=== PATIENT | female | born 1995 | race Caucasian/White ===

== ENCOUNTER 2024-04-17 16:33 | Emergency (ER) | payer OTHER, SELFPAY ==
[2024-04-17 16:41] VITALS: BP 125/87; PULSE 104; RESP 16; TEMP 36.9; O2SAT 99
--- NOTE | 2024-04-17 17:09 | ED_ITS ---
HPI - Skin/Abscess/Foreign Bdy General Chief complaint: Skin/Abscess/Foreign Body Stated complaint: Skib Problem Time Seen by Provider: 04/17/24 17:10 Source: patient and RN notes reviewed Mode of arrival: ambulatory Limitations: no limitations History of Present Illness HPI narrative: 28-year-old female presents with concern for rash between the fingers of her left hand. 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 She reports she has been using petroleum jelly. She reports the rash has been there for more than a month. She reports it is not itchy but can get irritated. It is not tender but sometimes it cracks and becomes painful. She reports this similar patch of rash on her left wrist. Denies any rash on her right hand or wrist MD complaint: rash Related Data Allergies Allergy/AdvReac Type Severity Reaction Status Date / Time No Known Allergies Allergy Verified 04/17/24 16:45 Review of Systems Review of Systems: CONSTITUTIONAL: Denies malaise, chills, sweats, or fever. EYES: Denies redness, or discharge. ENT: Denies rhinorrhea, congestion, swollen lips, swollen tongue CARDIOVASCULAR: Denies chest pain, palpitations, or edema. RESPIRATORY: Denies cough or dyspnea. GASTROINTESTINAL: Denies abdominal pain, nausea, vomiting SKIN: Reports rash to the left hand between her fingers MUSCULOSKELETAL: Denies joint pain or myalgia. NEUROLOGIC: Denies headache. All systems reviewed & are unremarkable except as noted in HPI and below PMFSH Comments At time of signature, agree with nursing past medical, surgical, social and family history. There is no relevant family history pertinent to the presenting complaint Exam Narrative: GENERAL: Well-appearing, well-nourished, and in no acute distress. HEAD: Normocephalic, atraumatic. EYES: PERRLA, conjunctivae clear, and EOMI. ENT: Mucous membranes moist. Oropharynx without edema, erythema or lesions. NECK: Supple. No lymphadenopathy CHEST: Clear to auscultation. No respiratory distress. HEART: Regular rate and rhythm. SKIN: Warm, dry. Patches of raised erythematous plaque with mild excoriation noted between the digits of the left hand, satellite patch noted to the left wrist. No tenderness, no warmth NEURO: Alert and oriented x3. PSYCH: Normal mood and affect Course Course Emergency Course: Patient is aware of diagnosis, understands and agrees to treatment plan. Anticipatory guidance given. Patient agrees to follow-up as directed and is aware of reasons to seek care at the emergency department. Portions of this record may have been created with voice recognition software Level of Care: Express Care Visit Vital Signs Vital signs: Vital Signs Temperature 98.4 F 04/17/24 16:41 Pulse Rate 104 H 04/17/24 16:41 Respiratory Rate 16 04/17/24 16:41 Blood Pressure 125/87 04/17/24 16:41 Pulse Oximetry 99 04/17/24 16:41 Oxygen Delivery Room Air 04/17/24 16:41 Temperature 98.4 F 04/17/24 16:41 Pulse Rate 104 H 04/17/24 16:41 Respiratory Rate 16 04/17/24 16:41 Blood Pressure 125/87 04/17/24 16:41 Pulse Oximetry 99 04/17/24 16:41 Oxygen Delivery Room Air 04/17/24 16:41 Reviewed. MDM - Skin/Abscess/Foreign Bdy MDM Narrative Medical decision making narrative: Does not appear at this time to be erythema multiforme, bullous, SJS, TEN; no evidence at this time to suggest RMSF, endocarditis or Lyme disease; patient looks well, nontoxic and is tolerating oral intake; no neurologic signs or symptoms; no headache, photophobia or neck pain; afebrile; appropriate for initial outpatient treatment; discussed the importance of follow-up, patient agrees; question, viral exanthema, contact dermatitis, allergic dermatitis, eczema, urticaria, impetigo, tinea. No soft palate or uvula edema, no tongue, lip edema or other mucosal involvement, no respiratory compromise, no stridor, no wheezing, no wheezing, no history of syncope, no hypotension, no nausea, vomiting, or diarrhea. Instructed patient to go to nearest ER immediately for any worsening symptoms including but not limited to: fever, spreading rash, pain, sore throat, headache, dizziness, chest pain, trouble breathing, or any symptoms concerning to the patient. Critical Care Time Critical Care Time Critical Care Time: No Discharge Plan Discharge Clinical Impression: Dermatitis Patient Disposition: Home, Self-Care Condition: Stable Instructions: Dermatitis (ED) Additional Instructions: Wash the area with gentle soap and water only, dry thoroughly. Use skin cream as prescribed Avoid scratching when possible to prevent worsening of the condition and disruption of the skin that could lead to bacterial infection To relieve itching, place a cool washcloth or some ice over the area that itches, rather than scratching Follow up with primary care provider or seek ER if you have trouble breathing, become hoarse, or start wheezing, develop belly cramps, vomiting or feel dizzy. Patient Language: Mongolian Prescriptions: New triamcinolone acetonide 0.1 % cream 1 applic TOPICAL BID 7 Days Qty: 80 0RF Follow-up/Referrals: PHYSICIAN,EMBROIDERY FINISHER [Primary Care Provider] - Time of Disposition: 17:18
--- OUTSIDE RECORDS SUMMARY | 2024-04-17 17:46 | XMS_ITS | Data Portability ---
Author Organization [facility] Address [address] [place] [address] Assessment Encounter Date Assessment Date Assessment LastModified by Organization Details LastModified Time 02/20/2023 02/20/2023 see ob episode [email or web address] Not available 02/20/2023 12:49:02 Plan of Treatment Reminders Order Date Submit Date Provider Last Modified By Organization Details Last Modified Time Details Appointments NEW PATIEN T 30 2024 09:00A Brandi Polanco- ith, [employer] WORKER-Bc Not available Not available Not available Lab pregna ncy test, urine 2023 024 [email or web address] In-Office Order, Internal Use Only DO Not Attach Compendium DO Not Attach Compendium, Do Not Delete/merge, [id number] 02/20/2023 12:53:32 cultur e, urine 2023 024 [facility], [address] [place] [address] 2, [place], [address], 02/23/2023 07:14:06 cytolo gy report , thin prep, smear or scrapi ng, cervic al or vagina l - spatul a and broom 2023 024 [facility], [address] [facility], [address], [place], [address], 02/22/2023 16:17:16 urinal ysis, dipsti ck 2023 024 [email or web address] In-Office Order, Internal Use Only DO Not Attach Compendium DO Not Attach Compendium, Do Not Delete/merge, [id number] 02/20/2023 13:31:13 HCG, intact + beta subuni t, quant, serum or plasma 2023 024 [facility], [address], [address], [place], [address], 02/23/2023 07:14:03 CBC w/ auto diff 2023 024 [facility], [address] [facility], [facility] 2, [place], [address], 02/21/2023 07:13:04 RPR (rapid plasma reagin ), serum 2023 024 [facility], [address] [place] [address], [facility] 2, [place], [address], 02/23/2023 07:14:07 HBsAg (hepat itis B surfac e Ag), EIA, serum 2023 024 [facility], [address] [place] [address], [facility] 2, [place], [address], 02/23/2023 07:14:06 abo group + rh type, blood 2023 024 [facility], [address] [place] [address], [facility] 2, [place], [address], 02/23/2023 07:14:05 antibo dy screen , serum or plasma 2023 024 [facility], [address] [facility], [facility] 2, [place], [address], 02/23/2023 07:14:04 HIV 1 + 2, meanin gful use set 2023 024 [facility], [address] [facility], [facility] 2, [place], [address], 02/23/2023 07:14:07 hemogl obin (Hb) electr ophore sis, blood 2023 024 [facility], [address] [facility], [place], [address], 02/23/2023 07:14:01 HSV 2 IgG Ab, QN, IA, serum 2023 024 [facility], [address] [facility], [address], [place], [address], 02/23/2023 07:14:03 Hepati tis C IgG Ab, qual, serum 2023 024 [facility], [address] [facility], [address], [place], [address], 02/23/2023 07:14:02 bacter ial vagino sis + vagini tis panel, vagina l 2014 015 [facility], [address] [place] [address] [address], [address], [place], [address], 12/14/2014 06:06:27 RPR (rapid plasma reagin ), serum 2014 015 [facility], [address] [place] [address], [address], [place], [address], 12/10/2014 12:40:37 HBsAg (hepat itis B surfac e Ag), EIA, serum 2014 015 [facility], [address] [place] [address] [address], [address], [place], [address], 12/10/2014 12:40:37 hepati tis C Ab, signal -to-cu toff, serum or plasma 2014 015 [facility], [address] [place] [address] [address], [address], [place], [address], 12/10/2014 12:40:36 HIV (1+O+2 ) Ab, serum 2014 015 [facility], [address] [facility], [address], [place], [address], 12/10/2014 12:40:35 Referral krystlee kehinde referr al 2023 024 [facility], [address] [facility] , [place], [address], 05/03/2023 13:19:23 Procedures None record ed. Surgeries None record ed. Imaging US, obstet isidro, 1st tr[address] 2023 024 [facility], [address], [address], [place], [address], 04/03/2023 12:52:48 Medication Orders cephal exin 500 mg capsul e 2023 024 [facility], [address] [place] [address], [address], 02/20/2023 11:10:37 Prenat al 28 mg iron-8 00 mcg tablet 2023 024 [facility], [address] [place] [address], [address], 02/20/2023 12:52:26 Sprint ec (28) 0.25 mg-35 mcg tablet 2014 015 [email or web address] Not available 02/20/2023 10:30:20 Patient TargetsNo targets recorded. Patient Instructions Encounter Date Encounter Id Patient Instructions Last Modified By Organization Details Last Modified Time 09/22/2014 [id number] cough in teens: care instructions [email or web address] Not available 09/22/2014 17:51:15 cough in children: care instructions [email or web address] Not available 09/22/2014 17:51:15 Push fluid, no milk-ice cream [email or web address] Not available 09/22/2014 17:41:12 Reason for Referral Counseling Referral for Posi tive screening for depression on PHQ-9 (Patient Health Questionnaire 9) Referring Physician: Mary Martinez, DEPUTY INSURANCE COMMISSIONER, Encounter Date: 02/20/2023 Results Created Date Observation Date Name Description Value Unit Range Abnormal Flag Note LastModifiedBy Organization Detail LastModifiedTime 12/10/19 15 12/10/2014 HIV (1+O+ 2) Ab, serum HIV 1/O/2 abs-index value <1.00 <1.00 INDEX VALUE : SPECI MEN REACT IVITY RELAT ANGELICA TO THE NEGAT ANGELICA CUTOF F. Not Available [facility] ([facility]) [address] [facility], [place], [address], 12/10/2014 12:40:35 12/10/19 15 12/10/2014 HIV (1+O+ 2) Ab, serum HIV 1/O/2 abs, qual NON REACTI VE non reacti ve Not Available [facility] ([facility]) [address] [facility], [place], [address], 12/10/2014 12:40:35 12/10/19 15 12/09/2014 hepat itis C Ab, signa l-to- cutof f, serum or plasm a comment: COMMEN T NON REACT ANGELICA HCV ANTIB MICHAEL SCREE N IS CONSI STENT WITH NO HCV INFEC TION, UNLES S RECEN T INFEC TION IS SUSPE CTED OR OTHER EVIDE NCE EXIST S TO INDIC ATE HCV INFEC TION. Not Available [facility] ([facility]) [address] [facility], [place], [address], 12/10/2014 12:40:36 12/10/19 15 12/10/2014 hepat itis C Ab, signa l-to- cutof f, serum or plasm a HCV Ab <0.1 S/co_ ratio 0.0-0. 9 Not Available [facility] ([facility]) [address] [facility], [place], [address], 12/10/2014 12:40:36 12/10/19 15 12/10/2014 RPR (rapi d plasm a reagi n), serum RPR NON REACTI VE non reacti ve Not Available [facility] ([facility]) [address] [place], [address], 12/10/2014 12:40:36 12/10/19 15 12/10/2014 HBsAg (hepa titis B surfa ce Ag), EIA, serum HBsAg screen NEGATI VE negati ve Not Available [facility] ([facility]) [address] [place], [address], 12/10/2014 12:40:37 12/10/19 15 12/12/2014 bacte rial vagin osis + vagin itis panel , vagin al nadeem albicans, JESUS NEGATI VE negati ve Not Available [facility] ([facility]) [address] [facility], [place], [address], 12/14/2014 06:06:27 12/10/19 15 12/12/2014 bacte rial vagin osis + vagin itis panel , vagin al nadeem glabrata, JESUS NEGATI VE negati ve THIS TEST WAS DEVEL LAQUITAED AND ITS PERFO RMANC E GUERRERO CTERI STICS DETER MINED BY [facility]. IT HAS NOT BEEN CLEAR ED OR APPRO PONCHO BY THE FOOD AND DRUG ADMIN ISTRA TION. THE FDA HAS DETER MINED THAT SUCH CLEAR ANCE OR APPRO KEN IS NOT NECES HAY. Not Available [facility] ([facility]) [address] [place], [address], 12/14/2014 06:06:27 12/10/19 15 12/12/2014 bacte rial vagin osis + vagin itis panel , vagin al trich vag by JESUS NEGATI VE negati ve Not Available [facility] ([facility]) [address] [place], [address], 12/14/2014 06:06:27 12/10/19 15 12/12/2014 bacte rial vagin osis + vagin itis panel , vagin al chlamydia trachomatis, JESUS NEGATI VE negati ve Not Available [facility] ([facility]) [address] [facility], [place], [address], 12/14/2014 06:06:27 12/10/19 15 12/12/2014 bacte rial vagin osis + vagin itis panel , vagin al neisseria gonorrhoeae, JESUS NEGATI VE negati ve Not Available [facility] ([facility]) [address] [facility], [place], [address], 12/14/2014 06:06:27 12/10/19 15 12/14/2014 bacte rial vagin osis + vagin itis panel , vagin al atopobium vaginae LOW - 0 score Not Available [facility] ([facility]) [address] [place] [address], [place], [address], 12/14/2014 06:06:27 12/10/19 15 12/14/2014 bacte rial vagin osis + vagin itis panel , vagin al bvab 2 LOW - 0 score Not Available [facility] ([facility]) [address] [place] [address], [place], [address], 12/14/2014 06:06:27 12/10/1912/14/2014 bacte rial vagin osis + vagin itis panel , vagin al megasphaera 1 LOW - 0 score CALCU LATE TOTAL SCORE BY DURGA Martínez THE 3 INDIV IDUAL BACTE RIAL VAGIN OSIS (BV) MARKE R SCORE S TOGET HER. TOTAL SCORE IS INTER PRETE D FOLLO WS: TOTAL SCORE 0-1: INDIC ATES THE ABSEN CE OF BV. TOTAL SCORE 2: INDET ERMIN ATE FOR BV. ADDIT IONAL CLINI BERRY DATA SHOUL D BE EVALU ATED TO ESTAB IRWIN A DIAGN OSIS. TOTAL SCORE 3-6: INDIC ATES THE PRESE NCE OF BV. THIS TEST WAS DEVEL OPED AND ITS PERFO RMANC E GUERRERO CTERI STICS DETER MINED BY [facility]. IT HAS NOT BEEN CLEAR ED OR APPRO PONCHO BY THE FOOD AND DRUG ADMIN ISTRA TION. THE FDA HAS DETER MINED THAT SUCH CLEAR ANCE OR APPRO KEN IS NOT NECES HAY. Not Available [facility] ([facility]) [address] [facility], [place], [address], 12/14/2014 06:06:27 02/20/19 24 02/20/2023 CBC WITH DIFFE RENTI AL/PL ATELE T WBC 7.4 x10e3 /uL 3.4-10 .8 Not Available [facility] Department [address] [place] [address], [address], 02/21/2023 07:13:04 02/20/19 24 02/20/2023 CBC WITH DIFFE RENTI AL/PL ATELE T RBC 4.29 x10e6 /uL 3.77-5 .28 Not Available [facility] Department [address] [place] [address], [address], 02/21/2023 07:13:04 02/20/19 24 02/20/2023 CBC WITH DIFFE RENTI AL/PL ATELE T hemoglobin 12.9 g/dL 11.1-1 5.9 Not Available [facility] Department [address] [place] [address], [address], 02/21/2023 07:13:04 02/20/19 24 02/20/2023 CBC WITH DIFFE RENTI AL/PL ATELE T hematocrit 37.1 % 34.0-4 6.6 Not Available [facility] Department [address] [place], [address], 02/21/2023 07:13:04 02/20/19 24 02/20/2023 CBC WITH DIFFE RENTI AL/PL ATELE T MCV 87 fL 79-97 Not Available [facility] Department [address] [place] [address], [address], 02/21/2023 07:13:04 02/20/19 24 02/20/2023 CBC WITH DIFFE RENTI AL/PL ATELE T MCH 30.1 pg 26.6-3 3.0 Not Available [facility] [address] [place], [address], 02/21/2023 07:13:04 02/20/19 24 02/20/2023 CBC WITH DIFFE RENTI AL/PL ATELE T MCHC 34.8 g/dL 31.5-3 5.7 Not Available [facility] [address] [place], [address], 02/21/2023 07:13:04 02/20/19 24 02/20/2023 CBC WITH DIFFE RENTI AL/PL ATELE T RDW 11.6 % 11.5-1 4.5 Not Available [facility] [address] [place], [address], 02/21/2023 07:13:04 02/20/19 24 02/20/2023 CBC WITH DIFFE RENTI AL/PL ATELE T platelets 331 x10e3 /uL 150-45 0 Not Available [facility] [address] [place], [address], 02/21/2023 07:13:04 02/20/19 24 02/20/2023 CBC WITH DIFFE RENTI AL/PL ATELE T neutrophils 79 % notest b. Not Available [facility] Department [address] [place], [address], 02/21/2023 07:13:04 02/20/19 24 02/20/2023 CBC WITH DIFFE RENTI AL/PL ATELE T lymphs 14 % notest b. Not Available [facility] [address] [place], [address], 02/21/2023 07:13:04 02/20/19 24 02/20/2023 CBC WITH DIFFE RENTI AL/PL ATELE T monocytes 6 % notest b. Not Available [facility] Department [address] [place], [address], 02/21/2023 07:13:04 02/20/19 24 02/20/2023 CBC WITH DIFFE RENTI AL/PL ATELE T eos 1 % notest b. Not Available [facility] Department [address] [place], [address], 02/21/2023 07:13:04 02/20/19 24 02/20/2023 CBC WITH DIFFE RENTI AL/PL ATELE T basos 0 % notest b. Not Available [facility] [address] [place], [address], 02/21/2023 07:13:04 02/20/1902/20/2023 CBC WITH DIFFE RENTI AL/PL ATELE T neutrophils (absolute) 5.8 x10e3 /uL 1.4-7. 0 Not Available [facility] Department [address] [place] [address], [address], 02/21/2023 07:13:04 02/20/1902/20/2023 CBC WITH DIFFE RENTI AL/PL ATELE T lymphs (absolute) 1.0 x10e3 /uL 0.7-3. 1 Not Available [facility] [address] [place], [address], 02/21/2023 07:13:04 02/20/19 24 02/20/2023 CBC WITH DIFFE RENTI AL/PL ATELE T monocytes(ab solute) 0.4 x10e3 /uL 0.1-0. 9 Not Available [facility] [address] [place], [address], 02/21/2023 07:13:04 02/20/19 24 02/20/2023 CBC WITH DIFFE RENTI AL/PL ATELE T eos (absolute) 0.1 x10e3 /uL 0.0-0. 4 Not Available [facility] [address] [place], [address], 02/21/2023 07:13:04 02/20/19 24 02/20/2023 CBC WITH DIFFE RENTI AL/PL ATELE T baso (absolute) 0.0 x10e3 /uL 0.0-0. 2 Not Available [facility] [address] [place], [address], 02/21/2023 07:13:04 02/20/19 24 02/20/2023 CBC WITH DIFFE RENTI AL/PL ATELE T immature granulocytes 0.5 % notest b. Not Available [facility] Department [address] [place], [address], 02/21/2023 07:13:04 02/20/19 24 02/20/2023 CBC WITH DIFFE RENTI AL/PL ATELE T immature grans (abs) 0.0 x10e3 /uL 0.0-0. 1 Not Available [facility] [address] [place], [address], 02/21/2023 07:13:04 02/20/19 24 02/20/2023 CBC WITH DIFFE RENTI AL/PL ATELE T NRBC 0 % 0-0 Not Available [facility] [address] [place], [address], 02/21/2023 07:13:04 02/20/19 24 02/22/2023 IGP,C TNGTV ,RFX APTIM A HPV ASCU diagnosis: Commen t NEGAT ANGELICA FOR INTRA EPITH ELIAL WINTER N OR STEW LOERA . Not Available [facility] ([facility]) [address] [facility], [place], [address], 02/22/2023 16:17:16 02/20/1902/22/2023 IGP,C TNGTV ,RFX APTIM A HPV ASCU specimen adequacy: Commen t Satis facto ry for evalu ation . No endoc ervic al compo nent is ident ified . Not Available [facility] ([facility]) [address] [facility], [place], [address], 02/22/2023 16:17:16 02/20/19 24 02/22/2023 IGP,C TNGTV ,RFX APTIM A HPV ASCU clinician provided ICD10: Patience torres Z34.9 0 Z01.4 19 N39.0 Not Available [facility] ([facility]) [address] [place], [address], 02/22/2023 16:17:16 02/20/19 24 02/22/2023 IGP,C TNGTV ,RFX APTIM A HPV ASCU performed by: Patience youssef, Filemon torres (ASCP ) Not Available [facility] ([facility]) [address] [place], [address], 02/22/2023 16:17:16 02/20/19 24 02/22/2023 IGP,C TNGTV ,RFX APTIM A HPV ASCU . . Not Available [facility] ([facility]) [address] [facility], [place], [address], 02/22/2023 16:17:16 02/20/19 24 02/22/2023 IGP,C TNGTV ,RFX APTIM A HPV ASCU note: Patience torres The Pap smear is a scree emeka test desig chantal to aid in the detec tion of isela ligna nt and malig nant condi tions of the uteri ne cervi x. It is not a diagn ostic proce dure and shoul d not be used as the sole means of detec ting cervi berry cance r. Both false -posi tive and false -nega tive repor ts do occur . Not Available [facility] ([facility]) [address] [place], [address], 02/22/2023 16:17:16 02/20/19 24 02/22/2023 IGP,C TNGTV ,RFX APTIM A HPV ASCU test methodology: Patience torres This liqui d based ThinP rep(R ) pap test was scree chantal with the use of an image guide lucila light Not Available [facility] ([facility]) [address] [place], [address], 02/22/2023 16:17:16 02/20/19 24 02/22/2023 IGP,C TNGTV ,RFX APTIM A HPV ASCU . Commen t The HPV DNA refle x crite marifer were not met with this speci men resul t there fore, no HPV testi ng was perfo rmed. Not Available [facility] ([facility]) [address] [place], [address], 02/22/2023 16:17:16 02/20/19 24 02/22/2023 IGP,C TNGTV ,RFX APTIM A HPV ASCU chlamydia, nuc. acid amp Negati ve negati ve Not Available [facility] ([facility]) [address] [place], [address], 02/22/2023 16:17:16 02/20/19 24 02/22/2023 IGP,C TNGTV ,RFX APTIM A HPV ASCU gonococcus, nuc. acid amp Negati ve negati ve Not Available [facility] ([facility]) [address] [place], [address], 02/22/2023 16:17:16 02/20/19 24 02/22/2023 IGP,C TNGTV ,RFX APTIM A HPV ASCU trich vag by JESUS Negati ve negati ve Not Available [facility] ([facility]) [address] [place], [address], 02/22/2023 16:17:16 02/20/19 24 02/21/2023 HGB FRACT IONAT ION CASCA DE HGB F 0.0 % 0.0-2. 0 Not Available [facility] ([facility]) [address] [place], [address], 02/23/2023 07:14:01 02/20/19 24 02/21/2023 HGB FRACT IONAT ION CASCA DE HGB A 97.4 % 96.4-9 8.8 Not Available [facility] ([facility]) [address] [facility], [place], [address], 02/23/2023 07:14:01 02/20/19 24 02/21/2023 HGB FRACT IONAT ION CASCA DE HGB A2 2.6 % 1.8-3. 2 Not Available [facility] ([facility]) [address] [facility], [place], [address], 02/23/2023 07:14:02/20/1902/21/2023 HGB FRACT IONAT ION CASCA DE HGB S 0.0 % 0.0 Not Available [facility] ([facility]) [address] [facility], [place], [address], 02/23/2023 07:14:01 02/20/19 24 02/21/2023 HGB FRACT IONAT ION CASCA DE interpretati on: Commen t Deborah l hemog lobin prese nt; no hemog lobin varia nt or beta thala ssemi a ident ified . Note: Alpha thala ssemi a may not be detec sherwin by the Hgb Fract ionat ion [place] panel . If alpha thala ssemi a is suspe cted, [facility] offer s Alpha -Thal assem ia DNA Tamra sis (#[id number]). Not Available [facility] ([facility]) [address] [facility], [place], [address], 02/23/2023 07:14:01 02/20/19 24 02/21/2023 HCV ANTIB MICHAEL RFX TO QUANT PCR HCV Ab Non Reacti ve nonrea ctive Not Available [facility] ([facility]) [address] [facility], [place], [address], 02/23/2023 07:14:02 02/20/1902/21/2023 HSV-2 AB, IGG hsv 2 IgG, type spec <0.91 index 0.00-0 .90 Negat angelica <0.91 Equiv ocal 0.91 - 1.09 Posit angelica >1.09 HSV-2 Antib michael Inter preta tion: Curre nt guide lines and recom menda tions do not recom mend routi ne scree emeka for HSV-2 in asymp tomat ic indiv idual s, inclu ding those that are pregn ant. A negat angelica antib michael resul t indic ates no detec table antib odies to HSV-2 were found . If recen t expos ure is suspe cted, retes t in 4 to 6 weeks . Equiv ocal sampl es shoul d be retes sherwin in 4 to 6 weeks . A posit angelica resul t indic ates the prese nce of detec table IgG antib michael to HSV-2 . FALSE POSIT ANGELICA RESUL TS MAY OCCUR . Repea t testi ng, or testi ng by a diffe abraham gaytan, may be indic ated in some setti ngs (e.g. patie nts with low likel ihood of HSV infec tion) . If clini ann appro priat e, retes t 4 to 6 weeks later . HSV-2 IgG antib michael testi ng resul ts shoul d be clini ann corre lated . Not Available [facility] ([facility]) [address] [facility], [place], [address], 02/23/2023 07:14:03 02/20/19 24 02/21/2023 HCG,B ETA SUBUN IT, QNT HCG,beta subunit,qnt, serum 88387 mIU/m L Femal e (Non- pregn ant) 0 - 5 (Post menop ausal ) 0 - 8 Femal e (Preg nant) Weeks of Gesta tion 3 6 - 71 4 10 - 025 5 261 - 9773 6 349 - 72643 7 1024 -2981 63 8 16571 -4540 71 9 67064 -9232 10 10 59257 -1205 77 12 84936 -2185 12 14 04509 - 48057 15 79570 - 04654 16 5137 - 47776 17 1012 - 93609 18 7929 - 83163 Resul ts confi rmed on dilut ion. Alfred ECLIA metho dolog y Not Available [facility] ([facility]) [address] [place], [address], 02/23/2023 07:14:03 02/20/19 24 02/21/2023 ANTIB MICHAEL SCREE N antibody screen See Final Result s Not Available [facility] ([facility]) [address] [place], [address], 02/23/2023 07:14:04 02/20/19 24 02/21/2023 ABO GROUP ING AND RHO(D ) TYPIN G ABO grouping A Not Available [facility] ([facility]) [address] [place], [address], 02/23/2023 07:14:05 02/20/19 24 02/21/2023 ABO GROUP ING AND RHO(D ) TYPIN G Rh factor Positi ve Pleas e note: Prior recor ds for this patie nt's ABO / Rh type are not avail able for addit ional verif icati on. Not Available [facility] ([facility]) [address] [place], [address], 02/23/2023 07:14:05 02/20/19 24 02/21/2023 HBSAG SCREE N HBsAg screen Negati ve negati ve Not Available [facility] ([facility]) [address] [place], [address], 02/23/2023 07:14:05 02/20/19 24 02/22/2023 URINE CULTU RELAM urine culture, routine Final report abnormal Not Available [facility] ([facility]) [address] [place], [address], 02/23/2023 07:14:06 02/20/19 24 02/22/2023 URINE CULTU RELAM NE result 1 Escher ichia coli abnormal Great er than 100,0 00 colon y formi ng units per mL Cefaz elba <=4 ug/mL Cefaz elba with an SHIRIN <=16 predi cts susce ptibi lity to the oral agent s cefac albert, cefdi abigail, cefpo doxim e, cefpr ozil, cefur oxime , cepha lexin , and lorac arbef when used for thera py of uncom plica sherwin urina ry tract infec tions due to E. coli, Klebs iella pneum oniae , and Prote us mirab ilis. Not Available [facility] ([facility]) [address] [facility], [place], [address], 02/23/2023 07:14:06 02/20/1902/22/2023 URINE CULTU RE, ROUTI NE antimicrobia l susceptibili ty Commen t S = Susce ptibl e; I = Inter media te; R = Resis tant P = Posit angelica; N = Negat angelica MICS are expre ssed in micro grams per mL Antib iotic RSLT# 1 RSLT# 2 RSLT# 3 RSLT# 4 Amoxi cilli n/Cla vulan ic Acid S Ampic illin S Cefep deonna S Ceftr iaxon e S Cefur oxime S Cipro floxa helen S Ertap enem S Genta micin S Imipe nem S Levof loxac in S Merop enem S Nitro furan toin S Piper acill in/Ta zobac león S Tetra cycli ne S Tobra mycin S Trime thopr im/Matos lfa S Not Available [facility] ([facility]) [address] [facility], [place], [address], 02/23/2023 07:14:06 02/20/19 24 02/21/2023 RPR, RFX QN RPR/C ONFIR M TP RPR Non Reacti ve nonrea ctive Not Available [facility] ([facility]) [address] [facility], [place], [address], 02/23/2023 07:14:07 01/08/02/21/2023 HIV AB/P2 4 AG WITH REFLE X HIV Ab/P24 Ag screen Non Reacti ve nonrea ctive HIV Negat angelica HIV-1 /HIV- 2 antib odies and HIV-1 p24 antig en were NOT detec sherwin. There is no labor atory evide nce of HIV infec tion. Not Available [facility] ([facility]) [address] [facility], [place], [address], 02/23/2023 07:14:07 02/20/19 24 02/20/2023 pregn jazzy test, urine HCG positi ve Not Available In-Office Order Internal Use Only DO Not Attach Compendium DO Not Attach Compendium, Do Not Delete/merge, [id number] 02/20/2023 12:53:26 02/20/1902/21/2023 INTER PRETA TION: interpretati on: Commen t Not infec sherwin with HCV unles s early or acute infec tion is suspe cted (whic h may be delay ed in an immun ocomp romis ed indiv idual ), or other evide nce exist s to indic ate HCV infec tion. Not Available [facility] ([facility]) [address] [facility], [place], [address], 02/23/2023 07:14:02 02/20/19 24 02/21/2023 AB SCR+A NTIBO DY ID antibody screen Positi ve negati ve abnormal Not Available [facility] ([facility]) [address] [facility], [place], [address], 02/23/2023 07:14:00 02/20/19 24 02/21/2023 AB SCR+A NTIBO DY ID antibody id. #1 Anti-E Not Available [facility] ([facility]) [address] [facility], [place], [address], 02/23/2023 07:14:00 02/20/19 24 02/21/2023 AB SCR+A NTIBO DY ID renetta titer #1 Commen t The antib michael is too weak to titer at this time. If a numer ical titer resul t has been repor sherwin, pleas e note that this resul t is the recip rocal value of titer resul ts forme rly repor sherwin as 1:2,1 :4, 1:8, etc. These resul ts are now repor sherwin as 2, 4, 8, etc. The [employer]i can [employer] i[employer] n of Blood Vigil has recom renetta d this haywood e in titer repor ting forma ts to simpl y refle ct the recip rocal value of the titer . Not Available [facility] ([facility]) [address] [facility], [place], [address], 02/23/2023 07:14:00 02/20/19 24 02/20/2023 urina lysis , dipst ick Leukocytes Trace Not Available In-Offi ce Order Internal Use Only DO Not Attach Compendium DO Not Attach Compendium, Do Not Delete/merge, 02/20/2023 10:41:14 02/20/19 24 02/20/2023 urina lysis , dipst ick Nitrite positi ve Not Available In-Office Order Internal Use Only DO Not Attach Compendium DO Not Attach Compendium, Do Not Delete/merge, 02/20/2023 10:41:14 02/20/19 24 02/20/2023 urina lysis , dipst ick Urobilinogen .2 Not Available In-Of fice Order Internal Use Only DO Not Attach Compendium DO Not Attach Compendium, Do Not Delete/merge, 02/20/2023 10:41:14 02/20/19 24 02/20/2023 urina lysis , dipst ick Protein 30 Not Available In-Office Order Internal Use Only DO Not Attach Compendium DO Not Attach Compendium, Do Not Delete/merge, 02/20/2023 10:41:14 02/20/19 24 02/20/2023 urina lysis , dipst ick pH 6.0 Not Available In-Office Order Internal Use Only DO Not Attach Compendium DO Not Attach Compendium, Do Not Delete/merge, 02/20/2023 10:41:14 02/20/19 24 02/20/2023 urina lysis , dipst ick Blood Negati ve Not Available In-Office Order Internal Use Only DO Not Attach Compendium DO Not Attach Compendium, Do Not Delete/merge, [id number] 02/20/2023 10:41:14 02/20/19 24 02/20/2023 urina lysis , dipst ick Specific Alfred 1.030 Not Available In-Off ice Order Internal Use Only DO Not Attach Compendium DO Not Attach Compendium, Do Not Delete/merge, 02/20/2023 10:41:14 02/20/19 24 02/20/2023 urina lysis , dipst ick Ketone Negati ve Not Available In-Office Order Internal Use Only DO Not Attach Compendium DO Not Attach Compendium, Do Not Delete/merge, 02/20/2023 10:41:14 02/20/19 24 02/20/2023 urina lysis , dipst ick Bilirubin Negati ve Not Available In-Office Order Internal Use Only DO Not Attach Compendium DO Not Attach Compendium, Do Not Delete/merge, 02/20/2023 10:41:14 02/20/19 24 02/20/2023 urina lysis , dipst ick Glucose Negati ve Not Available In-Office Order Internal Use Only DO Not Attach Compendium DO Not Attach Compendium, Do Not Delete/merge, [id number] 02/20/2023 10:41:14 02/20/19 24 02/20/2023 urina lysis , dipst ick Appearance Clear Not Available In-Offi ce Order Internal Use Only DO Not Attach Compendium DO Not Attach Compendium, Do Not Delete/merge, [id number] 02/20/2023 10:41:14 02/20/19 24 02/20/2023 urina lysis , dipst ick Color Dark Yellow Not Available In-Office Order Internal Use Only DO Not Attach Compendium DO Not Attach Compendium, Do Not Delete/merge, 02/20/2023 10:41:14 Result Notes None recorded. Problems Name Problem SNOMED Code Status Onset Date Resolution Date Notes Provider Name and Address Organization Details Recorded Time Dysuria 31515123 Active Ofelia murillo, [place] - [facility] 04/18/2014 18:23:40 Cough 76531060 Active Zelda Light MD Attn: Accounting ,[address] [facility], [place], [address] , [facility] - [facility] 09/22/2014 17:41:44 Problem Notes None recorded. Medical Equipment None Reported. Allergies No known drug allergies Medications Name Sig Start Date Stop Date Status Note LastModified by Organization Details LastModified Time tretinoin 0.1 % topical cream active Not Available Not Available Not Available azithromycin 250 mg tablet active Not Available Not Available Not Available cephalexin 500 mg capsule TAKE 1 CAPSULE BY MOUTH TWICE DAILY FOR 7 DAYS active Not Available Not Available No t Available ibuprofen 600 mg tablet active Not Available Not Available Not Available erythromycin -benzoyl peroxide 3 %-5 % topical gel active Not Available Not Available Not Available Previfem 0.25 mg-35 mcg tablet TAKE 1 TABLET BY MOUTH EVERY DAY 02/20 completed Not Available Not Available Not Available 28 mg iron-800 mcg tablet TAKE 1 TABLET BY MOUTH ONCE DAILY active Not Available Not Available No t Available Vitals Date Recorded Respiratory rate Body weight Body temperature Heart rate Body mass index (BMI) Body height Systolic blood pressure Diastolic blood pressure Provider Name and Address Organization Details Last Updated DateTime 5 20 /min 53601.8 2937 g 97.5 [degF] 92 /min 19.7 kg/m2 152.4 cm 110 mm[Hg] 70 mm[Hg] Sparkle Casanova MA [facility] 5 17:23:37 Date Recorded Respiratory rate Body weight Body temperature Heart rate Body mass index (BMI) Body height Systolic blood pressure Diastolic blood pressure Provider Name and Address Organization Details Last Updated DateTime 5 16 /min 60222.8 2937 g 98.3 [degF] 84 /min 19.7 kg/m2 152.4 cm 104 mm[Hg] 62 mm[Hg] Marycruz Salguero MA [facility] 5 16:54:19 Date Recorded Body height Body mass index (BMI) Body weight Systolic blood pressure Diastolic blood pressure Provider Name and Address Organization Details Last Updated DateTime 12/09/2014 152.4 cm 20.6 kg/m2 82863.63 5798 g 106 mm[Hg] 72 mm[Hg] Neli Cortés [place] - [facility] 5 11:55:43 Date Recorded Body weight Body height Body mass index (BMI) Systolic blood pressure Diastolic blood pressure Provider Name and Address Organization Details Last Updated DateTime 12/26/2014 95499.73 2584 g 152.4 cm 20.2 kg/m2 100 mm[Hg] 68 mm[Hg] Ro Luna [place] - [facility] 5 14:13:10 Date Recorded Body height Body mass index (BMI) Provider Name and Address Organization Details Last Updated DateTime 02/20/2023 152.4 cm 23.6 kg/m2 JEANNETTE Faith [place] - [facility] 02/20/2023 10:34:02 Date Recorded Body weight Systolic blood pressure Diastolic blood pressure Provider Name and Address Organization Details Last Updated DateTime 02/20/2023 48292.8204 65 g 116 mm[Hg] 74 mm[Hg] HUBERT Crespo Attn: Accounting,[address] [place] [address], [id number], [place] - [facility] 02/20/2023 12:48:11 Social History Question Answer Notes LastModified by Organizat ion Details LastModified Time Tobacco Smoking Status Never Smoker Nabeel murillo, [place] - [facility] 04/18/2014 16:33:59 What Is Your Level Of Alcohol Consumption? Occasional Information not available 02/20/2023 Do You Wear A Helmet When Biking? Yes Information not available 09/22/2014 Is Blood Transfusion Acceptable In An Emergency? Yes Information not available 12/09/2014 Are You Or Have You Been Involved With Bullying? No Information not available 09/22/2014 What Is Your Level Of Caffeine Consumption? Occasional Information not available 02/20/2023 How Much Tobacco Do You Chew? None Information not available 12/09/2014 Are You Currently Employed? Yes Information not available 12/09/2014 What Type Of Diet Are You Following? REGULAR Information not available 09/22/2014 Which Illicit Or Recreational Drugs Have You Used? No [email or web address] Information not available 04/18/2014 Education 11 Information no t available 12/09/2014 What Is The Fluoride Status Of Your Home? Unknown Information not available 09/22/2014 Do You Use Insect Repellent Routinely? Yes Information not available 09/22/2014 Live Alone Or With Others? With Others Information not available 12/09/2014 What Was The Date Of Your Most Recent Tobacco Screening? 02/20/2023 Information not available 02/20/2023 How Many Children Do You Have? 0 Information not available 12/09/2014 Performs Monthly Self-breast Exam? No [email or web address] Information no t available 04/18/2014 Do You Use Protection During Sex? Always Information not available 12/09/2014 What Is Your Relationship Status? Single Information not available 12/09/2014 Seat Belts Used Routinely Yes [email or web address] Information not available 04/18/2014 Are You Sexually Active? Yes Information not available 12/09/2014 Do You Have Smoke And Carbon Monoxide Detectors In Your Home? Yes Information not available 09/22/2014 How Much Tobacco Do You Smoke? No Information not available 09/22/2014 General Stress Level Low Information not available 12/09/2014 Do You Use Any Illicit Or Recreational Drugs? No Information not available 02/20/2023 Do You Use Sunscreen Routinely? Yes [email or web address] Information not available 04/18/2014 Has Tobacco Cessation Counseling Been Provided? Yes Information not available 02/20/2023 On What Date Was Tobacco Cessation Counseling Provided? 02/20/2023 Information not available 02/20/2023 Sex: Female Functional Status Question Answer Note LastModified by Organizat ion Details LastModified Time What is your exercise level? Occasional Information not available 12/09/2014 Mental Status None recorded. Family History Relationship Description Onset Age of this Age Resolved Age Notes LastModified by Organization Details LastModified Time Mother Hypertensive disorder [email or web address] Not available 2014 14:13:10 Father Diabetes mellitus [email or web address] Not available 2014 14:13:10 Paternal Grandfather Heart disease [email or web address] Not available 2014 14:13:10 Maternal Grandmother Heart disease [email or web address] Not available 2014 14:13:10 Maternal Grandmother Hypertensive disorder [email or web address] Not available 2014 14:13:10 Maternal Grandmother Cerebrovascu lar accident [email or web address] Not available 14:13:10 Maternal Grandmother Diabetes mellitus [email or web address] Not available 2014 14:13:10 Maternal Grandmother Hypercholest erolemia [email or web address] Not available 2014 14:13:10 Medical History Condition Response Heart Problems N Other N Breast Cancer N Thyroid Problems N Kidney or Bladder Problems N GI Problems N Lung Disease N Depression Y Acne N Breast Problem N Eating Disorder N Anemia N Anesthesia Complications N Headaches/Migraines N Anxiety Disorder Y Diabetes N Ovarian Cancer N Blood Transfusions N Arthritis N Polyps N Infertility N Acid Reflux (GERD) Y Cancer N Stroke N Abuse/Domestic Violence N Asthma N Endometriosis N High Cholesterol N Hepatitis N Heart Disease N Fibromyalgia N Pre-Eclampsia N Hypertension N Osteoporosis N Kidney Disease N Gynecological History Statement/Question Response Abnormal Pap N Flow Moderate STIs/STDs N HPV Vaccine Y Duration of Flow (days) 7 Age at Menarche 14 Current Control Method Depo-Study Specialist a Frequency of Cycle (Q days) 28 Sexually Active? Y Menses Monthly Y Sexual Problems? N LMP Approximate Obstetrics History GPAL:G 1 P 0 0 1 0 Type Value Multiple Births 0 Full Term 0 Induced 1 Spontaneous 0 Premature 0 Living 0 Ectopics 0 Total 1 Immunizations Vaccine Type Date Status Note Provider Nam e and Address Organization Details Recorded Time HPV, unspecified formulation 8 completed LOR Nielsen, [place] - [facility] 10/28/2014 12:46:30 OPV 8 completed Marycruz Salguero [place] null, [place] - [facility] 10/28/2014 12:46:30 Hep A, ped/adol, 2 dose 8 kerri Salguero [place] null, [place] - [facility] 10/28/2014 12:46:30 MMR 3 completed LRO Nielsen, [place] - [facility] 10/28/2014 12:46:30 DTP 8 LOR Hunter, [place] - [facility] 10/28/2014 12:46:30 OPV 8 LOR [place] [facility] 10/28/2014 12:46:30 DTP 8 completed LOR [place] [facility] 10/28/2014 12:46:30 meningococcal ACWY, unspecified formulation 2 [place] [facility] 10/28/2014 12:46:30 DTP 8 [place] [facility] 10/28/2014 12:46:30 IPV 3 [place] [facility] 10/28/2014 12:46:30 MMR 8 [place] [facility] 10/28/2014 12:46:30 HPV, unspecified formulation 8 completed [place] [facility] 10/28/2014 12:46:30 varicella 9 [place] [facility] 10/28/2014 12:46:30 Hib, unspecified formulation 8 completed [place] [facility] 10/28/2014 12:46:30 DTaP, unspecified formulation 9 completed [place] [facility] 10/28/2014 12:46:30 Hep B, adolescent or pediatric 7 completed [place] [facility] 10/28/2014 12:46:30 HPV, unspecified formulation 8 completed [place] [facility] 10/28/2014 12:46:30 influenza, unspecified formulation 9 [place] [facility] 10/28/2014 12:46:30 influenza nasal, unspecified formulation 1 [place] [facility] 10/28/2014 12:46:30 OPV 8 [place] [facility] 10/28/2014 12:46:30 Hep A, ped/adol, 2 dose 8 [place] [facility] 10/28/2014 12:46:30 DTaP, unspecified formulation 3 completed LOR Nielsen[place] [facility] 10/28/2014 12:46:30 Tdap 2 completed LOR Nielsen[place] [facility] 10/28/2014 12:46:30 pneumococcal conjugate PCV 7 1 completed LOR Nielsen[place] [facility] 10/28/2014 12:46:30 Hep B, adolescent or pediatric 7 completed LOR Nielsen[place] [facility] 10/28/2014 12:46:30 Hib, unspecified formulation 8 completed LOR Nielsen[place] [facility] 10/28/2014 12:46:30 Hib-Hep B 8 completed LOR Nielsen, [place] [facility] 10/28/2014 12:48:24 Meningococcal MCV4O 5 completed Not Available [facility] 03/02/2019 02:31:36 Past Encounters Encounter ID Performer Location Encounter Start Date Encounter Closed Date Diagnosis/Indication Diagnosis SNOMED-CT Code Diagnosis ICD10 Code Diagnosis Note [id number] [facility] ([employer]) [address] [place] [address] 04/18/2014 16:20:55 04/18/2014 17:14:23 Venereal disease screening 597385125 Dysuria 40224326 UA negative, dwp. [id number] UMESH Trinidad (Peds) [address] [place] [address] 09/22/2014 17:12:40 09/22/2014 17:42:22 Cough 20873606 Honey, warm oral liquids, no cold drinks. Call 1-2 days prn [id number] Marimar [facility] (Peds) [address] [place] [address] 11/05/2014 16:39:10 11/05/2014 17:23:14 Well child [id number] Ofelia Velazquez [facility] ([employer]) [address] [place] [address] 12/09/2014 11:42:37 12/09/2014 13:45:30 Venereal disease screening 703464061 Z11.3 RTO 2 weeks for results Oral contr aceptive prescribed 078636683 Z30.011 [id number] Ofelia Marcus [place] ([employer] INS[employer]ANCE COMMISS[employer]ER) [address] [place] [address] 12/26/2014 14:02:52 12/26/2014 14:51:08 Venereal disease screening 295244153 Z11.3 Vaginal culture was negative for BV, yeast, GC, chalm, and TV, dwp. STD panel was also completely negative. Individual test results d/w pt. RTO PRN + 1 year. [id number] HUBERT Crespo 14 OB [address] [facility] [address] [place] [address] 02/20/2023 10:18:40 02/21/2023 08:45:59 Routine gynecologic examination done 9605742091 9101 Z01.419 Routine an tenatal care 580014008 Z34.90 Acute urin alena tract infection 644755231 N39.0 Positive s creening for depression on PHQ-9 (Patient Health Questionnaire 9) 5119844265 90895 Z13.31 Missed period 36512183 N 92.5 Health Concerns Section Related Observation LastModified by Organization Detai ls LastModified Time None Recorded Concern Status LastModified by Organization Details LastModified Time None Recorded Advance Directives Directive None Recorded Payers Encounter Date Sequence Insurance Name Policy Number Policy Wang Covered Member ID Wang Member ID Guarantor Name 09/22/2014 1 [facility] [id number] Alex Blackwell [id number] [facility] 09/22/2014 1 [place] [facility] [id number] [facility] 11/05/2014 1 [facility] [id number] Alex Euceda Albyoseph [id number] [facility] 11/05/2014 1 [place] [facility] [id number] [facility] 12/09/2014 1 [facility] [id number] Alex Blackwell [id number] [facility] 12/09/2014 1 [place] [facility] [id number] [facility] 12/26/2014 1 [place] [employer] [facility] Magdalena Beauchamp [id number] Magdalena Beauchamp 02/20/2023 1 [facility] ([facility] [id number] Magdalena Beauchamp [id number] Magdalena Beauchamp Notes Date Note Type Note Provider Name and Address Organization Details Recorded Time 11/05/2014 text/html Been well, done great in school Zelda Light MD Attn: Accounting,[address] , [place], [address], [facility] - [facility] 11/05/2014 17:21:53 12/09/2014 text/html control re fill. Pt. is sexually active. She is using condoms all the time. Ofelia murillo, [facility] 12/09/2014 12:45:49 12/26/2014 text/html Pt. presents for results of STD testing. She has no complaints. Ofelia murillo, [facility] 01/22/2015 21:59:26 02/20/2023 text/html OB ProblemReport ed bypatient.Associated Symptoms:no abdominal pain; no cramping; no contractions; normal movement; no bleeding; no ROM; no vaginal discharge; no vaginal/vulvar itching or irritation; no dysuria; no urgency; no hematuria; no fever; no nausea; no emesis; no constipation; no diarrhea/loose stool; no edema; no visual changes; no headache; no dizziness;frequency Pt is here for OB appointment. Pt undecided if she wanted to continue with . pt report possible uti. Pt reports urination more than usual. pt denies any other complaints. PHQ score 4. Pt reports history of depression in the past. Pt would like counseling referral. Pt denies any SI or HI. Pt reports good support system. Pt denies abuse. HUBERT Crespo Attn: Accounting,[address] [facility], [place], [address], [facility] - [facility] 02/20/2023 00:00:00 OBGyn Episode Ob Episode Information Episode Created Date Number of Fetuses Patient Bloodtype Patient rh Status Prepregnancy Weight lbs Domestic Partner Domestic Partner Phone Father Name Senior Accountant Status 02/20/19 24 1 A Positive DELETED Fetus Data First Name Last Name Admitted to NICU Weight (g) Sex Living Outcome Pediatric Complications Fetus ID Race Codes Race Delivery Type [id number] Problems Problem Notes Problem Name Start Date End Date Resolution Snomed Code Not e Unplanned [id number] Discussed resources. Pt undecided on how she wants to proceed. pt notified to call office if issues occur. Farshad Calculation Initial Farshad Date Initial Exam Date Initial Exam Provider Initial Ultrasound Date Last Menstrual Period Date Ultra Sound Weeks Gestation 09/30/2023 02/20/2023 [email or web address] 12/24/2022 0 Eighteen To Twenty Week Farshad Update Ultra Sound Date Fundal Height At Umbil Quickening Date Ultra Sound Latest Weeks Gestation Final Farshad Confirmed By Final Farshad Confirmed Date Final Farshad Date Ultra Sound Latest Days Gestation 0 09/30/19 24 0 Menstrual History Last Menstrual Date Menses Monthly On Bcp Conception Prior Menses Frequency Hcg Plus Date Menarche Onset Age 1112/24/2022 Delivery Information Delivery Date Delivery Type Labor Anesthesia Weeks Gestation Incision Type Labor Labor Length Hrs Delivered By Post Complications Tubal Sterilization Discharge Date Comments Discharge Information Feeding Method Contraceptive Method Maternal HG B and HCT Levels
== END 2024-04-17 17:24 | disposition home or self-care (01) ==
PROVIDERS: Emergency Provider Nurse Practitioner
DX: L30.9 Dermatitis, unspecified (principal)
CPT/HCPCS: 99203; G0463

== ENCOUNTER 2024-10-06 10:28 | Emergency (ER) | payer OTHER, SELFPAY ==
--- OUTSIDE RECORDS SUMMARY | 2024-10-06 10:33 | XMS_ITS | Clinical Summary ---
Author Organization [facility] Address [address] [place] [address] Phone Care Team Providers Care Hourly Shift Manager Name Role Phone Sheri Eason MD Primary Care Provider [phone] Allergies No known active allergies Medications methylPREDNISol one (MEDROL DOSPACK) 4 MG Tablet Therapy Pack See product package insert for dosing schedule 21 Tablet Active triamcinolone (KENALOG) 0.1 % Cream Apply 3 times daily. Application Site:bilateral hands (Description and Location) 45 g Active Social History Tobacco Use Types Packs/Day Years Used Date Smoking Tobacco: Never Smokeless Tobacco: Never Tobacco Cessation:Counseling Given: Not Answered Comments Unknown Sex and Gender Information Value Date Recorded Sex Assigned at Not on file Legal Sex Female 10:30 PM CDT Gender Identity Not on file Sexual Orientation Not on file Last Filed Vital Signs Vital Sign Reading Time Taken Comments Blood Pressure 110/77 05/23/2024 5:43 PM CDT Pulse 84 05/23/2024 5:43 PM CDT Temperature 35.9 C (96.6 F) 05/23/2024 4:07 PM CDT Respiratory Rate 16 05/23/2024 5:43 PM CDT Oxygen Saturation 100% 05/23/2024 5:43 PM CDT Inhaled Oxygen Concentration - - Weight 60.3 kg (133 lb) 05/23/2024 4:07 PM CDT Height 152.4 cm (5') 05/23/2024 4:07 PM CDT Body Mass Index 25.97 05/23/2024 4:07 PM CDT Plan of Treatment [place] [address] MEDICAID [employer] Care Teams Hourly Shift Manager Relationship Specialty Start Date End Date Sheri Eason MD [address] [place] [address] [place] [address] PCP - General Family Medicine 05/23/24
--- NOTE | 2024-10-06 10:42 | ED_ITS ---
HPI - URI/Sore Throat General Chief Complaint: Extremity Injury, Lower Stated Complaint: Bruise on Left Leg Time Seen by Provider: 10/06/24 10:54 Source: patient and RN notes reviewed Mode of arrival: ambulatory Limitations: no limitations History of Present Illness HPI Narrative: 28-year-old presents with multiple complaints. She reports a bruise on her left side is she is concerned is a blood clot. She denies any extremity swelling, pain, redness, warmth, tenderness. In his separate complaints she reports she woke up with a sore throat this morning. She had some nasal congestion yesterday. She denies cough, shortness of breath, fever, body aches, chills, sweats. MD elicited complaint: sore throat Related Data Home Medications ?Medication ?Instructions ?Recorded ?Confirmed ?Last Taken ?Type clobetasol 0.05 % topical cream topical 10/06/24 Unkn own History Allergies Allergy/AdvReac Type Severity Reaction Status Date / Time No Known Allergies Allergy Verified 04/17/24 16:45 Review of Systems Review of Systems: CONSTITUTIONAL: Denies malaise, chills, sweats, or fever. EYES: Denies visual changes, redness, or discharge. ENT: Reports rhinorrhea, congestion, and sore throat. CARDIOVASCULAR: Denies chest pain, palpitations, or edema. RESPIRATORY: Reports cough. Denies dyspnea. GASTROINTESTINAL: Denies abdominal pain, nausea, vomiting, diarrhea SKIN: Denies rash or itching. Reports bruise on her left thigh MUSCULOSKELETAL: Denies myalgia. NEUROLOGIC: Denies headache. All systems reviewed & are unremarkable except as noted in HPI and below PMFSH Comments At time of signature, agree with nursing past medical, surgical, social and family history. There is no relevant family history pertinent to the presenting complaint Exam Narrative: GENERAL: Well-appearing, well-nourished, and in no acute distress. HEAD: Normocephalic EYES: PERRLA, conjunctivae clear ENT: Nares clear, clear discharge. Mucous membranes moist. TM pearly armstrong with dull light reflex bilaterally; no tragal tenderness. Oropharynx not erythematous without lesions. Tonsils not enlarged and without exudate, no drooling, no hoarseness, no trismus, uvula midline. NECK: Supple. No lymphadenopathy CHEST: Clear to auscultation, breath sounds equal. No wheezing, rhonchi, rales, or stridor. No respiratory distress, speaks in full sentences. HEART: Regular rate and rhythm. No murmur heard. SKIN: Warm, dry, no rash. 3 cm diameter area of ecchymosis noted to the left upper thigh without surrounding erythema, edema, induration. No distal edema, erythema, tenderness. NEURO: Alert and oriented x3. PSYCH: Normal mood and affect Course Course Emergency Course: Patient is aware of diagnosis, understands and agrees to treatment plan. Anticipatory guidance given. Patient agrees to follow-up as directed and is aware of reasons to seek care at the emergency department. Portions of this record may have been created with voice recognition software Level of Care: [facility] Visit Vital Signs Vital signs: Reviewed. MDM - URI/Sore Throat MDM Narrative Medical decision making narrative: I evaluated this patient in the [facility]. History is obtained from patient who is an independent historian and physical exam was performed.? Available medical records were reviewed. ? Exam findings and relevant testing show no acute concerns or changes; patient is non-toxic appearing and is in no distress. ? Differential diagnosis and treatment plan were discussed with the patient. Patient agrees with discussion and after shared medical decision making agrees with plan of care. All questions were answered to the patient's satisfaction. Patient is appropriate for outpatient treatment and follow-up. Critical Care Time Critical Care Time Critical Care Time: No Discharge Plan Discharge Clinical Impression: Bruise, Upper respiratory infection Patient Disposition: Home Condition: Stable Instructions: Upper Respiratory Infection (ED) Additional Instructions: Your rapid strep swab was negative today at [facility]. A throat culture will be sent to the laboratory for further testing. If the test is positive, you will receive a phone call within 48 hours and an appropriate antibiotic will be initiated at that time. Your symptoms are likely due to a viral illness, which is not treated with antibiotics. Viral symptoms can be present for up to a few weeks. -Alternate Tylenol and Motrin per package directions for fever or pain. -Antihistamine medication such as Benadryl at night and Zyrtec during the day can help improve symptoms. -Eat and drink things that are easy to swallow, like tea or soup, or popsicles to suck on. -Oral rinses such as: Salt water gargles and/or may use topical anesthetic (eg. Chloraseptic spray) or lozenges to relieve dryness or throat pain). -Frequent hand washing or hand master carpenter is one of the best ways to prevent spread of infection. -Follow up with primary care provider in 2-3 days if condition is not improving; or seek ER visit if you have trouble breathing, cannot drink enough fluids, have muffled voice, difficulty opening your mouth, or severe swelling. Patient Language: Setswana Prescriptions: New cetirizine-pseudoephedrine [Zyrtec-D] 5-120 mg tablet extended release 12 hr 1 tablet PO Q12H PRN (Reason: nasal congestion) Qty: 12 0RF No Action triamcinolone acetonide 0.1 % cream 1 applic TOPICAL BID 7 Days Qty: 80 0RF clobetasol 0.05 % cream TOPICAL Follow-up/Referrals: PHYSICIAN NOT ON STAFF,NONSTAFF [Primary Care Provider] Stand Alone Forms: Work/School Release IP Time of Disposition: 11:03
[2024-10-06 10:45] VITALS: BP 121/74; PULSE 78; RESP 16; TEMP 36.8; O2SAT 100
[2024-10-06 10:52] LABS: EDSTREPNEGPOS1 Negative (Negative)
== END 2024-10-06 11:07 | disposition home or self-care (01) ==
PROVIDERS: Emergency Provider Nurse Practitioner
DX: S70.12XA Contusion of left thigh, initial encounter (principal); X58.XXXA Exposure to other specified factors, initial encounter; J06.9 Acute upper respiratory infection, unspecified
CPT/HCPCS: 87081; 87880; 99213; G0463

== ENCOUNTER 2024-11-17 11:48 | Emergency (ER) | payer BC, OTHER, SELFPAY ==
[2024-11-17 11:52] VITALS: BP 127/86; PULSE 107; RESP 18; TEMP 36.8; O2SAT 98
--- NOTE | 2024-11-17 12:11 | ED_ITS ---
HPI - Nausea/Vomiting/Diarrhea General Chief complaint: Nausea/Vomiting/Diarrhea Stated complaint: Diarrhea/Nausea Time Seen by Provider: 11/17/24 12:00 28-year-old female Presents Express Care complaining of nausea, no vomiting, poor appetite diarrhea for 2 days. Patient denies any abdominal pain, fevers, body aches, chills. Patient states she is able to drink fluids however she states she is not drinking enough. Patient reports brown watery diarrhea. Patient denies any blood or mucus in stools. Patient has not tried any over -the-counter for relief. Patient denies recent travel outside the country. Source: patient and RN notes reviewed Mode of arrival: ambulatory Limitations: no limitations Related Data Allergies Allergy/AdvReac Type Severity Reaction Status Date / Time No Known Allergies Allergy Verified 11/17/24 11:55 Review of Systems Review of Systems: CONSTITUTIONAL: Denies fever, chills, body aches, or sweats. EYES: Denies visual changes, redness, or discharge. ENT: Denies rhinorrhea, congestion, sore throat, or otalgia. CARDIOVASCULAR: Denies chest pain, palpitations, or edema. RESPIRATORY: Denies cough or dyspnea. GASTROINTESTINAL: Denies abdominal pain, bloody stools, vomiting, hematochezia. Positive for nausea, and diarrhea. GENITOURINARY: Denies dysuria or hematuria. SKIN: Denies rash or itching. MUSCULOSKELETAL: Denies back pain, joint pain, or myalgia. NEUROLOGIC: Denies headache, numbness, or weakness. PSYCHIATRIC: Denies anxiety or depression. All other systems reviewed are negative, except as documented in HPI. Exam Narrative: GENERAL: This is a well-nourished, well-developed adult, in no apparent distress. They are non ill-appearing, nontoxic appearing. HEAD: normocephalic, atraumatic. EYES: Sclera clear/white. Vision is grossly intact. Conjunctiva normal bilaterally. Extraocular movements intact. EARS: External ears normal, Hearing grossly intact. NOSE: External nose normal THROAT: Mucous membranes moist NECK: Normal range of motion CARDIOVASCULAR: Tachycardic rate and rhythm normal S1-S2. No clicks, gallops, rubs, or murmurs RESPIRATORY: Respiratory rate normal, respiratory effort nonlabored, no respiratory distress. Lungs clear to auscultation throughout. Lung sounds equal bilaterally. No adventitious lung sounds. GASTROINTESTINAL: Abdomen soft, flat, non-tender, nondistended. Bowel sounds are active. No hepato-splenomegaly, or palpable masses. No guarding. No rebound tenderness. SKIN: warm, Dry, intact with no suspicious lesions or rash, good texture and turgor. NEURO: awake, alert, and oriented to person, place and time. There were no obvious focal neurologic abnormalities. EXTREMITIES: No joint tenderness, effusion, or edema noted. BACK: Nontender without deformity. No CVA tenderness. Course Course Emergency Course: Portions of this record may have been created with voice recognition software Level of Care: Express Care Visit Vital Signs Vital signs: Vital Signs Temperature 98.2 F 11/17/24 11:52 Pulse Rate 107 H 11/17/24 11:52 Respiratory Rate 18 11/17/24 11:52 Blood Pressure 127/86 11/17/24 11:52 Pulse Oximetry 98 11/17/24 11:52 Oxygen Delivery Room Air 11/17/24 11:52 Temperature 98.2 F 11/17/24 11:52 Pulse Rate 107 H 11/17/24 11:52 Respiratory Rate 18 11/17/24 11:52 Blood Pressure 127/86 11/17/24 11:52 Pulse Oximetry 98 11/17/24 11:52 Oxygen Delivery Room Air 11/17/24 11:52 MDM - Nausea/Vomiting/Diarrhea MDM Narrative Medical decision making narrative: Symptoms likely from a viral gastroenteritis. Will prescribe Zofran as needed for nausea and vomiting. Patient does not appear clinically dehydrated. Mild tachycardia, moist mucous membranes. Peritoneal findings, no abdominal tenderness. Patient has been able to keep fluids down. Your to patient drink plenty of fluids gum supplement electrolyte drinks such as Pedialyte or Gatorade. Discussed physical exam findings. Advised supportive measures and signs/symptoms to go to the ER. Pt is appropriate for outpt treatment and f/u. Differential Diagnosis Differential diagnosis: Likely traveler's diarrhea, food poisoning, gastroenteritis and dehydration Discharge Plan Discharge Clinical Impression: Gastroenteritis Patient Disposition: Home Condition: Stable Instructions: Antibiotic Form, Gastroenteritis (ED) Additional Instructions: It is likely have a viral gastroenteritis. This is normally a self-limiting condition or resolve within 24-72 hours. However sometimes symptoms may linger on up to 7 days. It is recommended not to take anything for the diarrhea and allow the diarrhea to run its course. If the diarrhea persist and you are feeling better, you may take Pepto-Bismol as needed to help control the diarrhea. Recommend hydration with plenty of fluids electrolyte supplementation such as Pedialyte. Follow-up PCP in 3-5 days. You may take Zofran as needed for nausea or vomiting. Recommend a clear liquid diet or a brat diet such as bananas, both comatose, rice, apples and progress to a regular diet as tolerated.. Your unable to keep anything down, he developed abdominal pain, fevers, uncontrollable diarrhea, concerns of dehydration, or any other concerns please go to the ER immediately. Patient Language: Ethiopian Prescriptions: New ondansetron 4 mg tablet,disintegrating 4 mg PO Q8H PRN (Reason: nausea and vomiting) Qty: 12 0RF Follow-up/Referrals: UNKNOWN,DOCTOR [Primary Care Provider] Stand Alone Forms: Work/School Release IP Time of Disposition: 12:08
== END 2024-11-17 12:13 | disposition home or self-care (01) ==
DX: K52.9 Noninfective gastroenteritis and colitis, unspecified (principal)
CPT/HCPCS: 99213; G0463